=== PATIENT | male | born 1990 | race African-American/Black ===

== ENCOUNTER 2020-12-29 09:56 | Outpatient (CLI) | payer OTHER ==
--- NOTE | 2020-12-29 12:44 | XRay Report ---
CHEST 2 VIEWS INDICATION / CLINICAL INFORMATION: R07.89. COMPARISON: None available. FINDINGS: SUPPORT DEVICES: None. HEART / MEDIASTINUM: No significant abnormality. LUNGS / PLEURA: No significant pulmonary or pleural abnormality. No pneumothorax. ADDITIONAL FINDINGS: No significant additional findings. IMPRESSION: 1. No acute findings. Signer Name: Partha Leiva MD Signed: 12/29/2020 12:40 PM Workstation Name: [id number]
== END 2020-12-29 09:57 | disposition home or self-care (01) ==
LOC: XRAY 09:56
PROVIDERS: ATTEND Internal Medicine
DX: R07.89 Other chest pain (principal)
CPT/HCPCS: 71046